=== PATIENT | female | born 1945 | race Caucasian/White ===

== ENCOUNTER 2017-04-22 19:50 | Emergency (ER) | payer MEDICARE ==
[2017-04-22] MEDS ORDERED: METOCLOPRAMIDE 5 MG/ML 2 ML VIAL IVP STA ×2 (20:42→21:24)
[2017-04-22] MEDS ORDERED: SODIUM CHLORIDE 0.9% 1,000 ML IV STA (20:42)
[2017-04-22] MEDS ORDERED: RX INFO: IV CONTRAST WAS GIVEN 1 EACH MISC MISCELLANE PRN (20:43)
--- NOTE | 2017-04-22 20:47 | ED ---
General Adult HPI - General Chief complaint: Headache Stated complaint: Migraine Time Seen by Provider: 04/22/17 20:32 Source: patient, RN notes reviewed Mode of arrival: wheelchair Limitations: no limitations - History of Present Illness Initial comments: 71-year-old female presents to the emergency she developed this headache. She states it was around the front of her forehead and wraps around both sides of her face to her neck. She states that she has a history of migraines but this was different. She took a baby aspirin medication to help with her headache is still do not get better. They state they checked her blood pressures which were somewhat elevated at home around 150s 160s. She states that she then took a Tylenol 3. She states that this time her headache has improved with 10 to about an 8. She states that she still having the frontal headache. She states it's worse to light. She states that she does have a history of migraines and states that this time it is currently starting to represent her normal migraine. They were concerned due to the continued headache and the fact that it was not improving so without that they should be evaluated. Patient denies any recent fever, chills, shortness of breath, chest pain, back pain, abdominal pain, nausea vomiting, numbness or tingling, dysuria or hematuria, constipation or diarrhea, visual changes, or any other current symptoms. - Related Data Home Medications Medication Instructions Recorded Confirmed ALPRAZolam [Xanax] 0.5 mg PO HS PRN 02/08/15 02/08/15 Atenolol [Tenormin] 50 mg PO HS 02/08/15 02/09/15 Citalopram Hydrobromide [CeleXA] 10 mg PO DAILY 02/08/15 02/08/15 Enalapril/Hydrochlorothiazide 1 tab PO DAILY 02/08/15 02/08/15 [Vaseretic 5-12.5 mg] Latanoprost Ophth [Xalatan 0.005%] 1 drops BOTH EYES HS 02/08/15 02/08/15 Verapamil HCl [Verapamil ER] 60 mg PO DAILY@1400 02/08/15 02/08/15 Verapamil HCl [Verapamil ER] 120 mg PO HS 02/08/15 02/08/15 Previous Rx's Medication Instructions Recorded Aspirin EC [Ecotrin Low Dose] 81 mg PO DAILY #30 tablet. 02/09/15 Allergies Allergy/AdvReac Type Severity Reaction Status Date / Time epinephrine Allergy Unknown Verified 04/22/17 19:58 apple AdvReac Rapid Verified 04/22/17 19:58 Heart Rate ciprofloxacin AdvReac Unknown Verified 04/22/17 19:58 monosodium glutamate AdvReac Rapid Verified 04/22/17 19:58 Heart Rate preservatives AdvReac Rapid Uncoded 04/22/17 19:58 Heart Rate Review of Systems ROS Statement: Those systems with pertinent positive or pertinent negative responses have been documented in the HPI. ROS Other: All systems not noted in ROS Statement are negative. Past Medical History Past Medical History: Hyperlipidemia, Hypertension, Osteoarthritis (OA) History of Any Multi-Drug Resistant Organisms: None Reported Past Surgical History: Adenoidectomy, Tonsillectomy Past Anesthesia/Blood Transfusion Reactions: No Reported Reaction Past Psychological History: Anxiety Smoking Status: Former smoker Past Alcohol Use History: Occasional Past Drug Use History: None Reported - Past Family History Father Family Medical History: Cancer, Congestive Heart Failure (CHF) Mother Family Medical History: Dementia Sister(s) Family Medical History: No Reported History Daughter(s) Family Medical History: No Reported History General Exam - General Exam Comments Initial Comments: General: The patient is awake and alert, in no distress, and does not appear acutely ill. Eye: Pupils are equal, round and reactive to light, extra-ocular movements are intact; there is normal conjunctiva bilaterally. No signs of icterus. Ears, nose, mouth and throat: There are moist mucous membranes and no oral lesions. Neck: The neck is supple, there is no tenderness. Cardiovascular: There is a regular rate and rhythm. No murmur, rub or gallop is appreciated. Respiratory: Lungs are clear to auscultation, respirations are non-labored, breath sounds are equal. No wheezes, stridor, rales, or rhonchi. Gastrointestinal: Soft, non-distended, non-tender abdomen without masses or organomegaly noted. There is no rebound or guarding present. No CVA tenderness. Bowel sounds are unremarkable. Back: There is no tenderness to palpation in the midline. There is no obvious deformity. No rashes noted. Musculoskeletal: Normal ROM, no tenderness, There is no pedal edema. There is no calf tenderness or swelling. Sensation intact. Pulses equal bilaterally 2+. Neurological: CN II-XII intact, There are no obvious motor or sensory deficits. Coordination appears grossly intact. Speech is normal. Skin: Skin is warm and dry and no rashes or lesions are noted. Psychiatric: Cooperative, appropriate mood & affect, normal judgment. Limitations: no limitations Course Vital Signs 04/22/17 04/22/17 19:54 22:59 Temperature 99.4 F Pulse Rate 60 51 L Respiratory 18 20 Rate Blood Pressure 149/67 152/66 O2 Sat by Pulse 99 99 Oximetry Medical Decision Making - Medical Decision Making 71-year-old female presents for migraine. Patient's lab work and imaging has been evaluated. This time we discussed most suspicion for a migraine with the patient does have a history of. She is feeling better at this time. At this time we did discuss care at home for this. We did discuss return parameters and follow-up and all questions. The patient stated that she understood and she is negative this plan. This time the patient will be discharged. - Lab Data Result diagrams: 04/22/17 21:08 04/22/17 21:08 Lab Results 04/22/17 04/22/17 04/22/17 Range/Units 21:08 21:08 21:08 WBC 9.6 (3.8-10.6) k/uL RBC 4.91 (3.80-5.40) m/uL Hgb 14.4 (11.4-16.0) gm/dL Hct 42.0 (34.0-46.0) % MCV 85.6 (80.0-100.0) fL MCH 29.4 (25.0-35.0) pg MCHC 34.4 (31.0-37.0) g/dL RDW 12.9 (11.5-15.5) % Plt Count 257 (150-450) k/uL Neutrophils % 85 % Lymphocytes % 11 % Monocytes % 2 % Eosinophils % 1 % Basophils % 0 % Neutrophils # 8.2 H (1.3-7.7) k/uL Lymphocytes # 1.1 (1.0-4.8) k/uL Monocytes # 0.2 (0-1.0) k/uL Eosinophils # 0.1 (0-0.7) k/uL Basophils # 0.0 (0-0.2) k/uL PT 10.9 (9.0-12.0) sec INR 1.1 (<1.2) APTT 23.0 (22.0-30.0) sec Sodium 139 (137-145) mmol/L Potassium 3.4 L (3.5-5.1) mmol/L Chloride 103 (98-107) mmol/L Carbon Dioxide 25 (22-30) mmol/L Anion Gap 11 mmol/L BUN 18 H (7-17) mg/dL Creatinine 1.00 (0.52-1.04) mg/dL Est GFR (MDRD) Af Amer >60 (>60 ml/min/1.73 sqM) Est GFR (MDRD) Non-Af 54 (>60 ml/min/1.73 sqM) Glucose 142 H (74-99) mg/dL Calcium 9.6 (8.4-10.2) mg/dL Total Bilirubin 0.6 (0.2-1.3) mg/dL AST 26 (14-36) U/L ALT 25 (9-52) U/L Alkaline Phosphatase 61 (38-126) U/L Total Protein 6.8 (6.3-8.2) g/dL Albumin 4.2 (3.5-5.0) g/dL Influenza Type A RNA (Not Detectd) Influenza Type B (PCR) (Not Detectd) 04/22/17 Range/Units 21:26 WBC (3.8-10.6) k/uL RBC (3.80-5.40) m/uL Hgb (11.4-16.0) gm/dL Hct (34.0-46.0) % MCV (80.0-100.0) fL MCH (25.0-35.0) pg MCHC (31.0-37.0) g/dL RDW (11.5-15.5) % Plt Count (150-450) k/uL Neutrophils % % Lymphocytes % % Monocytes % % Eosinophils % % Basophils % % Neutrophils # (1.3-7.7) k/uL Lymphocytes # (1.0-4.8) k/uL Monocytes # (0-1.0) k/uL Eosinophils # (0-0.7) k/uL Basophils # (0-0.2) k/uL PT (9.0-12.0) sec INR (<1.2) APTT (22.0-30.0) sec Sodium (137-145) mmol/L Potassium (3.5-5.1) mmol/L Chloride (98-107) mmol/L Carbon Dioxide (22-30) mmol/L Anion Gap mmol/L BUN (7-17) mg/dL Creatinine (0.52-1.04) mg/dL Est GFR (MDRD) Af Amer (>60 ml/min/1.73 sqM) Est GFR (MDRD) Non-Af (>60 ml/min/1.73 sqM) Glucose (74-99) mg/dL Calcium (8.4-10.2) mg/dL Total Bilirubin (0.2-1.3) mg/dL AST (14-36) U/L ALT (9-52) U/L Alkaline Phosphatase (38-126) U/L Total Protein (6.3-8.2) g/dL Albumin (3.5-5.0) g/dL Influenza Type A RNA Not Detected (Not Detectd) Influenza Type B (PCR) Not Detected (Not Detectd) - Radiology Data Radiology results: report reviewed, image reviewed Disposition Clinical Impression: Headache Disposition: HOME SELF-CARE Condition: Stable Instructions: Acute Headache (ED) Additional Instructions: Please use medication as discussed. Please follow up with family doctor if symptoms have not improved over the next two days. Please return to the emergency room if your symptoms increase or worsen or for any other concerns. Referrals: Emmanuel Lepe MD [Primary Care Provider] - 1-2 days Time of Disposition: 23:03
[2017-04-22 21:18] LABS: Basophils % (A) 0 %; Eosinophils # (A) 0.1 k/uL (0-0.7); Eosinophils % (A) 1 %; HGB 14.4 gm/dL (11.4-16.0); Lymphocytes # (A) 1.1 k/uL (1.0-4.8); Lymphocytes % (A) 11 %; MCH 29.4 pg (25.0-35.0); MCHC 34.4 g/dL (31.0-37.0); MCV 85.6 fL (80.0-100.0); Mean Platelet Volume 7.1; Monocytes # (A) 0.2 k/uL (0-1.0); Monocytes % (A) 2 %; Neutrophils # (A) 8.2 k/uL (1.3-7.7); Neutrophils % (A) 85 %; Platelet Count 257 k/uL (150-450); RBC 4.91 m/uL (3.80-5.40); RDW 12.9 % (11.5-15.5); WBC 9.6 k/uL (3.8-10.6)
[2017-04-22 21:30] LABS: ALT 25 U/L (9-52); AST 26 U/L (14-36); Albumin 4.2 g/dL (3.5-5.0); Alkaline Phosphatase 61 U/L (38-126); Anion Gap 11 mmol/L; Blood Urea Nitrogen 18 mg/dL (7-17); Calcium 9.6 mg/dL (8.4-10.2); Carbon Dioxide 25 mmol/L (22-30); Chloride 103 mmol/L (98-107); Glucose 142 mg/dL (74-99); Sodium 139 mmol/L (137-145); Total Bilirubin 0.6 mg/dL (0.2-1.3); Total Protein 6.8 g/dL (6.3-8.2)
[2017-04-22 21:38] LABS: INR 1.1 (<1.2); Prothrombin Time 10.9 sec (9.0-12.0)
[2017-04-22 21:49] LABS: Potassium 3.4 mmol/L (3.5-5.1)
--- NOTE | 2017-04-22 22:58 | CT ---
EXAM: CT Head Without and With Intravenous Contrast CLINICAL HISTORY: Reason: Pain TECHNIQUE: Axial computed tomography images of the head/brain without and with intravenous contrast. CTDI is 60.38, 60.30 mGy and DLP is 2124 mGy-cm. This CT exam was performed using one or more of the following dose reduction techniques: automated exposure control, adjustment of the mA and/or kV according to patient size, and/or use of iterative reconstruction technique. COMPARISON: No relevant prior studies available. FINDINGS: Brain: Unremarkable. No hemorrhage. No significant white matter disease. No edema. Normal enhancement. Ventricles: Unremarkable. No ventriculomegaly. Bones/joints: Unremarkable. No acute fracture. Soft tissues: Unremarkable. Sinuses: Unremarkable as visualized. No acute sinusitis. Mastoid air cells: Unremarkable. IMPRESSION: No acute intracranial abnormality.
[2017-04-22 23:00] VITALS: BP 152/66; PULSE 51; RESP 20
[2017-04-22] MEDS ORDERED: diphenhydrAMINE 25 MG CAP PO STA (23:02)
[2017-04-22 23:04] VITALS: TEMP 98.5
== END 2017-04-22 23:26 | disposition home or self-care (01) ==
LOC: EC 19:50
DX: R51 Headache (principal); I10 Essential (primary) hypertension; Z87.891 Personal history of nicotine dependence; Z79.899 Other long term (current) drug therapy; Z88.1 Allergy status to other antibiotic agents; Z88.8 Allergy status to other drugs, medicaments and biological substances; Z91.018 Allergy to other foods; Z91.02 Food additives allergy status
CPT/HCPCS: 36415; 80053; 85025; 85610; 85730; 87502; 70470; 99284; 96374; 96361 ×2; J2765; Q9967

== ENCOUNTER 2020-02-06 15:19 | Emergency (ER) | payer MEDICARE ==
[2020-02-06 15:31] VITALS: RESP 18
--- NOTE | 2020-02-06 15:43 | ED ---
General Adult HPI - General Chief complaint: Headache Stated complaint: Head Pain,Lightheaded Time Seen by Provider: 02/06/20 15:36 Source: patient, EMS, RN notes reviewed, old records reviewed Mode of arrival: EMS Limitations: no limitations - History of Present Illness Initial comments: 74 yo female presenting for evaluation of headache and lightheadedness. Patient was at home, she had a right parietal occipital headache which began approximately one hour prior to arrival. She states that she had a cold feeling travel through her body and she became lightheaded. She felt very weak. She denies focal numbness or weakness. She states that she has a headache although it is much improved at this time and it is predominantly left-sided and oc cipital. She denies vision changes. She denies nausea vomiting. She states she was in her usual state of health prior to this headache. No chest pain. No dyspnea. She states that she typically gets 2 headaches per week. She has had a similar headache 2 times over the past several months. - Related Data Home Medications Medication Instructions Recorded Confirmed ALPRAZolam [Xanax] 0.5 mg PO BID 02/08/15 02/06/20 Citalopram Hydrobromide [CeleXA] 20 mg PO HS 02/08/15 02/06/20 Latanoprost Ophth [Xalatan 0.005%] 1 drop BOTH EYES HS 02/08/15 02/06/20 Enalapril/Hydrochlorothiazide 1 tab PO DAILY 02/06/20 02/06/20 [Enalapril/Hydrochlorothiazide 10-25 mg Tablet] Metoprolol Tartrate 25 mg PO DAILY 02/06/20 02/06/20 amLODIPine [Norvasc] 5 mg PO HS 02/06/20 02/06/20 Allergies Allergy/AdvReac Type Severity Reaction Status Date / Time epinephrine Allergy Unknown Verified 02/06/20 16:30 apple AdvReac Rapid Verified 02/06/20 16:30 Heart Rate ciprofloxacin AdvReac Unknown Verified 02/06/20 16:30 monosodium glutamate AdvReac Rapid Verified 02/06/20 16:30 Heart Rate preservatives AdvReac Rapid Uncoded 02/06/20 16:30 Heart Rate Review of Systems ROS Statement: Those systems with pertinent positive or pertinent negative responses have been documented in the HPI. ROS Other: All systems not noted in ROS Statement are negative. Past Medical History Past Medical History: Hyperlipidemia, Hypertension, Osteoarthritis (OA) History of Any Multi-Drug Resistant Organisms: None Reported Past Surgical History: Adenoidectomy, Tonsillectomy Past Anesthesia/Blood Transfusion Reactions: No Reported Reaction Past Psychological History: Anxiety Smoking Status: Former smoker Past Alcohol Use History: Occasional Past Drug Use History: None Reported - Past Family History Father Family Medical History: Cancer, Congestive Heart Failure (CHF) Mother Family Medical History: Dementia Sister(s) Family Medical History: No Reported History Daughter(s) Family Medical History: No Reported History General Exam Limitations: no limitations General appearance: alert, in no apparent distress Head exam: Present: atraumatic, normocephalic Eye exam: Present: normal appearance, PERRL ENT exam: Present: normal exam Neck exam: Present: normal inspection. Absent: tenderness, meningismus Respiratory exam: Present: normal lung sounds bilaterally. Absent: respiratory distress, wheezes Cardiovascular Exam: Present: regular rate, normal rhythm GI/Abdominal exam: Present: soft. Absent: distended, tenderness Extremities exam: Present: normal inspection, normal capillary refill. Absent: pedal edema, calf tenderness Neurological exam: Present: alert, oriented X3, CN II-XII intact. Absent: motor sensory deficit Psychiatric exam: Present: normal affect, normal mood Skin exam: Present: warm, dry, intact. Absent: cyanosis, diaphoretic Course Vital Signs 02/06/20 02/06/20 15:28 16:12 Temperature 97.8 F Pulse Rate 63 60 Respiratory 18 18 Rate Blood Pressure 163/75 155/58 O2 Sat by Pulse 99 100 Oximetry EKG Findings - EKG Comments: EKG Findings:: EKG: Normal sinus rhythm, T-wave inversion in aVL and V2, no ST segment elevation, rate of 61, AK interval 152, QRS duration 104, QTC 457. Medical Decision Making - Medical Decision Making 68 sexual female presenting with a headache, headache history at baseline however this was somewhat different. It has occurred twice over the past several months similar to today's headache. She is well-appearing with stable vitals. Workup is initiated including head CT which is performed within 2 hours of symptom onset. This is negative for intracranial hemorrhage. Patient does not have a severe headache this is not the worst headache of her life. Additionally she had a not feeling and some lightheadedness. No chest pain. No abdominal pain. She has this EKG showing sinus rhythm, she has a normal CBC, normal CMP, negative troponin. I did offer observation with neurology cons ultation given her headache frequency. She prefers outpatient treatment at this time. Her daughter is at bedside was agreeable. Given her headache frequency and the fact she has had this headache twice in the past several months I am reassured and will provide this patient with outpatient neurology follow-up. She's given strict return parameters. - Lab Data Result diagrams: 02/06/20 15:41 02/06/20 15:41 Lab Results 02/06/20 02/06/20 02/06/20 Range/Units 15:41 15:41 15:41 WBC 7.4 (3.8-10.6) k/uL RBC 4.52 (3.80-5.40) m/uL Hgb 13.1 (11.4-16.0) gm/dL Hct 39.2 (34.0-46.0) % MCV 86.7 (80.0-100.0) fL MCH 29.0 (25.0-35.0) pg MCHC 33.4 (31.0-37.0) g/dL RDW 13.2 (11.5-15.5) % Plt Count 219 (150-450) k/uL MPV 8.2 Neutrophils % 79 % Lymphocytes % 14 % Monocytes % 4 % Eosinophils % 2 % Basophils % 1 % Neutrophils # 5.9 (1.3-7.7) k/uL Lymphocytes # 1.0 (1.0-4.8) k/uL Monocytes # 0.3 (0-1.0) k/uL Eosinophils # 0.2 (0-0.7) k/uL Basophils # 0.0 (0-0.2) k/uL PT 10.6 (9.0-12.0) sec INR 1.0 (<1.2) APTT 21.5 L (22.0-30.0) sec Sodium (137-145) mmol/L Potassium (3.5-5.1) mmol/L Chloride (98-107) mmol/L Carbon Dioxide (22-30) mmol/L Anion Gap mmol/L BUN (7-17) mg/dL Creatinine (0.52-1.04) mg/dL Est GFR (CKD-EPI)AfAm (>60 ml/min/1.73 sqM) Est GFR (CKD-EPI)NonAf (>60 ml/min/1.73 sqM) Glucose (74-99) mg/dL Plasma Lactic Acid Renny (0.7-2.0) mmol/L Calcium (8.4-10.2) mg/dL Magnesium (1.6-2.3) mg/dL Total Bilirubin (0.2-1.3) mg/dL AST (14-36) U/L ALT (4-34) U/L Alkaline Phosphatase (38-126) U/L Troponin I (0.000-0.034) ng/mL Total Protein (6.3-8.2) g/dL Albumin (3.5-5.0) g/dL Urine Color Yellow Urine Appearance Clear (Clear) Urine pH 5.5 (5.0-8.0) Ur Specific [place] 1.011 (1.001-1.035) Urine Protein Negative (Negative) Urine Glucose (UA) Negative (Negative) Urine Ketones Trace H (Negative) Urine Blood Moderate H (Negative) Urine Nitrite Negative (Negative) Urine Bilirubin Negative (Negative) Urine Urobilinogen <2.0 (<2.0) mg/dL Ur Leukocyte Esterase Negative (Negative) Urine RBC 10 H (0-5) /hpf Urine WBC 1 (0-5) /hpf Ur Squamous Epith Cells <1 (0-4) /hpf 02/06/20 02/06/20 02/06/20 Range/Units 15:41 15:41 15:41 WBC (3.8-10.6) k/uL RBC (3.80-5.40) m/uL Hgb (11.4-16.0) gm/dL Hct (34.0-46.0) % MCV (80.0-100.0) fL MCH (25.0-35.0) pg MCHC (31.0-37.0) g/dL RDW (11.5-15.5) % Plt Count (150-450) k/uL MPV Neutrophils % % Lymphocytes % % Monocytes % % Eosinophils % % Basophils % % Neutrophils # (1.3-7.7) k/uL Lymphocytes # (1.0-4.8) k/uL Monocytes # (0-1.0) k/uL Eosinophils # (0-0.7) k/uL Basophils # (0-0.2) k/uL PT (9.0-12.0) sec INR (<1.2) APTT (22.0-30.0) sec Sodium 137 (137-145) mmol/L Potassium 3.5 (3.5-5.1) mmol/L Chloride 108 H (98-107) mmol/L Carbon Dioxide 22 (22-30) mmol/L Anion Gap 7 mmol/L BUN 28 H (7-17) mg/dL Creatinine 1.16 H (0.52-1.04) mg/dL Est GFR (CKD-EPI)AfAm 53 (>60 ml/min/1.73 sqM) Est GFR (CKD-EPI)NonAf 46 (>60 ml/min/1.73 sqM) Glucose 102 H (74-99) mg/dL Plasma Lactic Acid Renny 1.5 (0.7-2.0) mmol/L Calcium 9.4 (8.4-10.2) mg/dL Magnesium 1.7 (1.6-2.3) mg/dL Total Bilirubin 0.7 (0.2-1.3) mg/dL AST 26 (14-36) U/L ALT 14 (4-34) U/L Alkaline Phosphatase 54 (38-126) U/L Troponin I <0.012 (0.000-0.034) ng/mL Total Protein 6.8 (6.3-8.2) g/dL Albumin 4.1 (3.5-5.0) g/dL Urine Color Urine Appearance (Clear) Urine pH (5.0-8.0) Ur Specific [place] (1.001-1.035) Urine Protein (Negative) Urine Glucose (UA) (Negative) Urine Ketones (Negative) Urine Blood (Negative) Urine Nitrite (Negative) Urine Bilirubin (Negative) Urine Urobilinogen (<2.0) mg/dL Ur Leukocyte Esterase (Negative) Urine RBC (0-5) /hpf Urine WBC (0-5) /hpf Ur Squamous Epith Cells (0-4) /hpf Disposition Clinical Impression: Headache Disposition: HOME SELF-CARE Condition: Good Instructions (If sedation given, give patient instructions): Acute Headache (ED) Is patient prescribed a controlled substance at d/c from ED?: No Referrals: Emmanuel Lepe MD [Primary Care Provider] - 1-2 days Chet Miller DO [STAFF PHYSICIAN] - 1-2 days Time of Disposition: 17:16
[2020-02-06 15:56] LABS: Basophils % (A) 1 %; Eosinophils # (A) 0.2 k/uL (0-0.7); Eosinophils % (A) 2 %; HCT 39.2 % (34.0-46.0); HGB 13.1 gm/dL (11.4-16.0); Lymphocytes % (A) 14 %; MCHC 33.4 g/dL (31.0-37.0); MCV 86.7 fL (80.0-100.0); Mean Platelet Volume 8.2; Monocytes # (A) 0.3 k/uL (0-1.0); Monocytes % (A) 4 %; Neutrophils # (A) 5.9 k/uL (1.3-7.7); Neutrophils % (A) 79 %; Platelet Count 219 k/uL (150-450); RBC 4.52 m/uL (3.80-5.40); RDW 13.2 % (11.5-15.5); WBC 7.4 k/uL (3.8-10.6)
[2020-02-06 16:05] LABS: Albumin 4.1 g/dL (3.5-5.0); Calcium 9.4 mg/dL (8.4-10.2); Magnesium 1.7 mg/dL (1.6-2.3); Potassium 3.5 mmol/L (3.5-5.1); Total Bilirubin 0.7 mg/dL (0.2-1.3); Total Protein 6.8 g/dL (6.3-8.2)
[2020-02-06 16:14] LABS: Partial Thromboplastin Time 21.5 sec (22.0-30.0); Prothrombin Time 10.6 sec (9.0-12.0)
--- NOTE | 2020-02-06 16:16 | CT ---
EXAMINATION TYPE: CT brain wo con DATE OF EXAM: 02/06/2020 HISTORY: New onset WALLS CT DLP: 1141.4 mGycm. Automated Exposure Control for Dose Reduction was Utilized. TECHNIQUE: CT scan of the head is performed without contrast. COMPARISON: CT brain April 22, 2017. FINDINGS: There is no acute intracranial hemorrhage or midline shift identified. There is diffuse v entricular and sulcal prominence consistent with diffuse cerebral atrophy. Findings greatest over the high frontal and parietal lobes similar to prior. There is low-attenuation in the periventricular wh ite matter consistent with chronic small vessel ischemic change. The globes are intact and the visua lized sinuses are clear. IMPRESSION: No acute intracranial hemorrhage or midline shift. There is mild to moderate diffuse ce rebral atrophy and chronic small vessel ischemic change redemonstrated. No significant change from p rior.
[2020-02-06 16:34] LABS: Appearance,Urine Clear (Clear); Bilirubin,Urine Negative (Negative); Blood,Urine Moderate (Negative); Color,Urine Yellow; Glucose,Urine (UA) Negative (Negative); Ketones,Urine Trace (Negative); Leukocyte Esterase,Urine Negative (Negative); Nitrite,Urine Negative (Negative); PH, Urine 5.5 (5.0-8.0); Protein,Urine Negative (Negative); RBC,Urine 10 /hpf (0-5); Specific Gravity,Urine 1.011 (1.001-1.035); Squamous Epithelial Cell,Urine <1 /hpf (0-4); Urobilinogen,Urine <2.0 mg/dL (<2.0); WBC,Urine 1 /hpf (0-5)
[2020-02-06 17:24] VITALS: BP 144/62; PULSE 65; TEMP 97.7
== END 2020-02-06 17:21 | disposition home or self-care (01) ==
LOC: EC 15:19
DX: R51.9 Headache, unspecified (principal); R42 Dizziness and giddiness; I10 Essential (primary) hypertension; F41.9 Anxiety disorder, unspecified; Z79.899 Other long term (current) drug therapy; Z88.8 Allergy status to other drugs, medicaments and biological substances; Z91.018 Allergy to other foods; Z88.1 Allergy status to other antibiotic agents; Z91.02 Food additives allergy status; Z87.891 Personal history of nicotine dependence
CPT/HCPCS: 36415; 70450; 80053; 81001; 83605; 83735; 84484; 85025; 85610; 85730; 93005; 99285

== ENCOUNTER 2020-07-20 17:52 | Observation (INO) | payer MEDICARE ==
[2020-07-20] MEDS ORDERED: SODIUM CHLORIDE 0.9% 500 ML 500 ML IV STA (18:50)
[2020-07-20] MEDS ORDERED: MORPHINE SULFATE 2 MG/ML SYRINGE IVP STA (18:51)
[2020-07-20] MEDS ORDERED: METOCLOPRAMIDE 5 MG/ML 2 ML VIAL IVP STA (18:51)
[2020-07-20] MEDS ORDERED: diphenhydrAMINE 50 MG/ML 1 ML VIAL IVP STA (18:51)
[2020-07-20 19:02] LABS: Basophils % (A) 1 %; Eosinophils # (A) 0.2 k/uL (0-0.7); Eosinophils % (A) 3 %; HCT 39.6 % (34.0-46.0); HGB 13.8 gm/dL (11.4-16.0); Lymphocytes # (A) 1.3 k/uL (1.0-4.8); Lymphocytes % (A) 20 %; MCH 29.6 pg (25.0-35.0); MCHC 34.9 g/dL (31.0-37.0); MCV 84.9 fL (80.0-100.0); Mean Platelet Volume 7.9; Monocytes # (A) 0.3 k/uL (0-1.0); Monocytes % (A) 5 %; Neutrophils # (A) 4.6 k/uL (1.3-7.7); Neutrophils % (A) 71 %; Platelet Count 196 k/uL (150-450); RBC 4.66 m/uL (3.80-5.40); RDW 12.9 % (11.5-15.5); WBC 6.4 k/uL (3.8-10.6)
[2020-07-20 19:13] LABS: Albumin 4.2 g/dL (3.5-5.0); Calcium 9.5 mg/dL (8.4-10.2); Magnesium 1.8 mg/dL (1.6-2.3); Potassium 3.4 mmol/L (3.5-5.1); Total Bilirubin 0.7 mg/dL (0.2-1.3); Total Protein 6.8 g/dL (6.3-8.2)
[2020-07-20 19:16] LABS: Partial Thromboplastin Time 22.4 sec (22.0-30.0); Prothrombin Time 10.6 sec (9.0-12.0)
--- NOTE | 2020-07-20 19:41 | XR ---
EXAMINATION TYPE: XR chest 2V DATE OF EXAM: 07/20/2020 COMPARISON: NONE HISTORY: Chest pain TECHNIQUE: 2 views FINDINGS: There is no heart failure nor confluent pneumonic infiltrate. Costophrenic angles are clear . There are no hilar masses. IMPRESSION: No active cardiopulmonary disease. No change.
[2020-07-20] MEDS ORDERED: NALOXONE 0.4 MG/ML 1 ML VIAL IV PRN (20:38)
[2020-07-20] MEDS ORDERED: MORPHINE SULFATE 4 MG/ML SYRINGE IV PRN (20:38)
[2020-07-20] MEDS ORDERED: ONDANSETRON 4 MG/2 ML VIAL IVP PRN (20:38)
--- NOTE | 2020-07-20 20:40 | ED ---
General Adult HPI - General Chief complaint: Chest Pain Stated complaint: Chest pain Time Seen by Provider: 07/20/20 17:57 Source: patient, EMS Mode of arrival: EMS Limitations: no limitations - History of Present Illness Initial comments: 44-year-old female patient presents to the emergency department today for evaluation of chest pain and migraine headache. Patient states that she has had the substernal chest pressure for the last couple of days worsening today. Reports a little bit of shortness of breath with this. Denies any cough or congestion. Denies any sweats. States she has had some nausea. States she also developed migraine this morning. States she does have a history of migraines, this headache is typical for her usual migraine pattern. Denies any blurred or double vision. Patient denies any recent rash, fever, chills, abdo fadi pain, nausea, vomiting, diarrhea, constipation, back pain, numbness, tingling, dizziness, weakness, hematuria, dysuria, urinary urgency, urinary frequency, or any other complaints. - Related Data Home Medications Medication Instructions Recorded Confirmed ALPRAZolam [Xanax] 0.5 mg PO BID 02/08/15 02/06/20 Citalopram Hydrobromide [CeleXA] 20 mg PO HS 02/08/15 02/06/20 Latanoprost Ophth [Xalatan 0.005%] 1 drop BOTH EYES HS 02/08/15 02/06/20 Enalapril/Hydrochlorothiazide 1 tab PO DAILY 02/06/20 02/06/20 [Enalapril/Hydrochlorothiazide 10-25 mg Tablet] Metoprolol Tartrate 25 mg PO DAILY 02/06/20 02/06/20 amLODIPine [Norvasc] 5 mg PO HS 02/06/20 02/06/20 Allergies Allergy/AdvReac Type Severity Reaction Status Date / Time epinephrine Allergy Unknown Verified 07/20/20 18:02 apple AdvReac Rapid Verified 07/20/20 18:02 Heart Rate ciprofloxacin AdvReac Unknown Verified 07/20/20 18:02 monosodium glutamate AdvReac Rapid Verified 07/20/20 18:02 Heart Rate preservatives AdvReac Rapid Uncoded 07/20/20 18:02 Heart Rate Review of Systems ROS Statement: Those systems with pertinent positive or pertinent negative responses have been documented in the HPI. ROS Other: All systems not noted in ROS Statement are negative. Past Medical History Past Medical History: Hyperlipidemia, Hypertension, Osteoarthritis (OA) History of Any Multi-Drug Resistant Organisms: None Reported Past Surgical History: Adenoidectomy, Tonsillectomy Past Anesthesia/Blood Transfusion Reactions: No Reported Reaction Past Psychological History: Anxiety Smoking Status: Former smoker Past Alcohol Use History: Occasional Past Drug Use History: None Reported - Past Family History Father Family Medical History: Cancer, Congestive Heart Failure (CHF) Mother Family Medical History: Dementia Sister(s) Family Medical History: No Reported History Daughter(s) Family Medical History: No Reported History General Exam Limitations: no limitations General appearance: alert, in no apparent distress, other (Physical well- developed, well-nourished adult female patient in no acute distress. Vital signs upon presentation are temperature 98.0F, pulse 62, respirations 18, blood pressure 152/73, pulse ox 99% on room air.) Eye exam: Present: normal appearance, PERRL, EOMI. Absent: scleral icterus, conjunctival injection, periorbital swelling ENT exam: Present: normal exam, normal oropharynx, mucous membranes moist Respiratory exam: Present: normal lung sounds bilaterally. Absent: respiratory distress, wheezes, rales, rhonchi, stridor Cardiovascular Exam: Present: regular rate, normal rhythm, normal heart sounds. Absent: systolic murmur, diastolic murmur, rubs, gallop, clicks GI/Abdominal exam: Present: soft, normal bowel sounds. Absent: distended, tenderness, guarding, rebound, rigid Neurological exam: Present: alert, oriented X3, CN II-XII intact Expanded Speech: Present: fluid speech Cranial nerves: EOM's Intact: Normal, Nystagmus: Normal Motor strength exam: RUE: 5, LUE: 5, RLE: 5, LLE: 5 Psychiatric exam: Present: normal affect, normal mood Skin exam: Present: warm, dry, intact, normal color. Absent: rash Course Vital Signs 07/20/20 07/20/20 17:57 19:04 Temperature 98 F Pulse Rate 62 72 Respiratory 18 16 Rate Blood Pressure 152/73 140/65 O2 Sat by Pulse 99 99 Oximetry EKG Findings - EKG Comments: EKG Findings:: EKG obtained at 1822 shows sinus bradycardia with a ventricular 59, AR interval 162, QRS duration 104, QTC 474, QTC 469. No evidence of ST elevation or depression. Medical Decision Making - Medical Decision Making 74-year-old female patient presented to the emergency department today for evaluation of migraine headache and chest pain. Physical examination is unremarkable. She is neurologically intact with no focal deficits. Lungs are clear to auscultation with good air movement. EKG showed no evidence of ST elevation or depression. She'll be admitted to the hospital for surgical bones and further evaluation by cardiology. She is agreeable with this plan. Case discussed with my attending Dr. Greene. - Lab Data Result diagrams: 07/20/20 18:55 07/20/20 18:55 Lab Results 07/20/20 07/20/20 07/20/20 Range/Units 18:55 18:55 18:55 WBC 6.4 (3.8-10.6) k/uL RBC 4.66 (3.80-5.40) m/uL Hgb 13.8 (11.4-16.0) gm/dL Hct 39.6 (34.0-46.0) % MCV 84.9 (80.0-100.0) fL MCH 29.6 (25.0-35.0) pg MCHC 34.9 (31.0-37.0) g/dL RDW 12.9 (11.5-15.5) % Plt Count 196 (150-450) k/uL MPV 7.9 Neutrophils % 71 % Lymphocytes % 20 % Monocytes % 5 % Eosinophils % 3 % Basophils % 1 % Neutrophils # 4.6 (1.3-7.7) k/uL Lymphocytes # 1.3 (1.0-4.8) k/uL Monocytes # 0.3 (0-1.0) k/uL Eosinophils # 0.2 (0-0.7) k/uL Basophils # 0.0 (0-0.2) k/uL PT 10.6 (9.0-12.0) sec INR 1.0 (<1.2) APTT 22.4 (22.0-30.0) sec Sodium 138 (137-145) mmol/L Potassium 3.4 L (3.5-5.1) mmol/L Chloride 104 (98-107) mmol/L Carbon Dioxide 23 (22-30) mmol/L Anion Gap 11 mmol/L BUN 26 H (7-17) mg/dL Creatinine 1.10 H (0.52-1.04) mg/dL Est GFR (CKD-EPI)AfAm 56 (>60 ml/min/1.73 sqM) Est GFR (CKD-EPI)NonAf 49 (>60 ml/min/1.73 sqM) Glucose 98 (74-99) mg/dL Calcium 9.5 (8.4-10.2) mg/dL Magnesium 1.8 (1.6-2.3) mg/dL Total Bilirubin 0.7 (0.2-1.3) mg/dL AST 23 (14-36) U/L ALT 14 (4-34) U/L Alkaline Phosphatase 52 (38-126) U/L Troponin I (0.000-0.034) ng/mL Total Protein 6.8 (6.3-8.2) g/dL Albumin 4.2 (3.5-5.0) g/dL Lipase 173 (23-300) U/L Influenza Type A (PCR) (Not Detectd) Influenza Type B (PCR) (Not Detectd) RSV (PCR) (Not Detectd) SARS-CoV-2 (PCR) (Not Detectd) 07/20/20 07/20/20 Range/Units 18:55 20:08 WBC (3.8-10.6) k/uL RBC (3.80-5.40) m/uL Hgb (11.4-16.0) gm/dL Hct (34.0-46.0) % MCV (80.0-100.0) fL MCH (25.0-35.0) pg MCHC (31.0-37.0) g/dL RDW (11.5-15.5) % Plt Count (150-450) k/uL MPV Neutrophils % % Lymphocytes % % Monocytes % % Eosinophils % % Basophils % % Neutrophils # (1.3-7.7) k/uL Lymphocytes # (1.0-4.8) k/uL Monocytes # (0-1.0) k/uL Eosinophils # (0-0.7) k/uL Basophils # (0-0.2) k/uL PT (9.0-12.0) sec INR (<1.2) APTT (22.0-30.0) sec Sodium (137-145) mmol/L Potassium (3.5-5.1) mmol/L Chloride (98-107) mmol/L Carbon Dioxide (22-30) mmol/L Anion Gap mmol/L BUN (7-17) mg/dL Creatinine (0.52-1.04) mg/dL Est GFR (CKD-EPI)AfAm (>60 ml/min/1.73 sqM) Est GFR (CKD-EPI)NonAf (>60 ml/min/1.73 sqM) Glucose (74-99) mg/dL Calcium (8.4-10.2) mg/dL Magnesium (1.6-2.3) mg/dL Total Bilirubin (0.2-1.3) mg/dL AST (14-36) U/L ALT (4-34) U/L Alkaline Phosphatase (38-126) U/L Troponin I <0.012 (0.000-0.034) ng/mL Total Protein (6.3-8.2) g/dL Albumin (3.5-5.0) g/dL Lipase (23-300) U/L Influenza Type A (PCR) Not Detected (Not Detectd) Influenza Type B (PCR) Not Detected (Not Detectd) RSV (PCR) Not Detected (Not Detectd) SARS-CoV-2 (PCR) Not Detected (Not Detectd) - Radiology Data Radiology results: report reviewed, image reviewed Two-view x-ray of the chest is obtained. Report was reviewed in its entirety. Impression by Dr. Joe shows no active cardiopulmonary disease. No change. Disposition Clinical Impression: Chest pain Disposition: ADMITTED IP TO THIS [facility] Condition: Serious Decision to Admit Reason: Admit from EC Decision Date: 07/20/20 Decision Time: 20:40
[2020-07-20] MEDS ORDERED: POTASSIUM CHLORIDE ER 20 MEQ TAB.ER PO STA (21:15)
[2020-07-20] MEDS ORDERED: BACLOFEN 10 MG TAB PO PRN (21:28)
[2020-07-20] MEDS ORDERED: Acetaminophen-Codeine 300-30mg TAB PO PRN (21:28)
[2020-07-21] MEDS: MULTIVITAMINS, THERA 1 EACH TAB PO SCH (07:35)
[2020-07-21] MEDS: ALPRAZolam 0.5 MG TAB PO SCH ×2 (07:40→20:30)
[2020-07-21] MEDS: LISINOPRIL-HCTZ 20-25 MG 1 EACH TAB PO SCH (08:32)
[2020-07-21] MEDS ORDERED: REGADENOSON 0.4 MG/5 ML SYRINGE IV PRN (08:36)
[2020-07-21] MEDS ORDERED: AMINOPHYLLINE 500 MG/20 ML VIAL IV PRN (08:36)
[2020-07-21] MEDS ORDERED: CAFFEINE CITRATE 60 MG/3 ML VIAL IV PRN (08:36)
[2020-07-21] MEDS ORDERED: ASPIRIN 325 MG TAB PO SCH (09:00)
[2020-07-21] MEDS ORDERED: NON FORMULARY DRUG (Turmeric Root Extract [Turmeric] 500 MG Capsule) PO SCH (09:00)
--- NOTE | 2020-07-21 10:01 | P.CRDCN ---
History of Present Illness History of present illness: HISTORY OF PRESENTING ILLNESS This is a pleasant 74-year-old female past medical history significant for hypertension, frequent migraine headaches and arthritis. 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 We have been asked to see in consultation for chest pain. She states for the previous 3 days she has been having intermittent episodes of chest discomfort described as a tight squeezing sensation in the midsternal region. Not associated with activity or exertion. Yesterday she began having a pretty significant headache after finishing physical therapy. She had another episode of chest discomfort shortly thereafter that radiated to the left jaw. She denies associated shortness of breath, dizziness, palpitations, nausea, vomiting or diaphoresis. Most recent stress test performed 2014 was a Lexiscan stress test that was negative for reversible cardiac ischemia. DIAGNOSTICS EKG reveals sinus bradycardia with T-wave inversions in the anterior leads, consistent with previous EKGs. Chest xray negative for an acute cardiopulmonary process. Laboratory reviewed, EDC unremarkable, sodium 138, potassium 3.4, creatinine 1.1, magnesium 1.8 and cardiac enzymes negative 3. Current cardiac medications include Lopressor 25 mg at bedtime, amlodipine 5 mg daily and enalapril/hydrochlorothiazide 10/25 mg daily. REVIEW OF SYSTEMS At the time of my exam: CONSTITUTIONAL: Complains of ongoing headache. Denies fever or chills. CARDIOVASCULAR: Denies chest pain, shortness of breath, orthopnea, PND or palp itations. RESPIRATORY: Denies cough. GASTROINTESTINAL: Denies abdominal pain, diarrhea, constipation, nausea or vomiting. MUSCULOSKELETAL: Denies myalgias. NEUROLOGIC: Denies numbness, tingling, headacbe or weakness. ENDOCRINE: Denies fatigue, weight change, polydipsia or polyurina. GENITOURINARY: Denies burning, hematuria or urgency with micturation. HEMATOLOGIC: Denies history of anemia or bleeding. PHYSICAL EXAMINATION Blood pressure 129/57 heart rate 57 afebrile and maintaining oxygen saturation on room air. CONSTITUTIONAL: No apparent distress. HEENT: Head is normocephalic. Pupils are equal, round. Sclerae anicteric. Mucous membranes of the mouth are moist. No JVD. Right carotid bruit. CHEST EXAMINATION: Lungs are clear to auscultation. No chest wall tenderness is noted on palpation or with deep breathing. HEART EXAMINATION: Regular rate and rhythm. S1, S2 heard. No murmurs, gallops or rub. ABDOMEN: Soft, nontender. Positive bowel sounds. EXTREMITIES: 2+ peripheral pulses, no lower extremity edema and no calf tenderness. NEUROLOGIC EXAMINATION: Patient is awake, alert and oriented x3. ASSESSMENT Chest pain, atypical Abnormal EKG, chronic since 2014 Headache Hypertension History of arthritis PLAN An acute coronary event has been ruled out. Proceed with Lexiscan stress test to assess for reversible cardiac ischemia. Check lipid panel. If stress test is normal she can be discharged from a cardiac perspective. Outpatient follow up on right carotid bruit. Thank you kindly for this consultation. Nurse Practitioner note has been reviewed, I agree with a documented findings and plan of care. Patient was seen and examined. Past Medical History Past Medical History: Hyperlipidemia, Hypertension, Osteoarthritis (OA) History of Any Multi-Drug Resistant Organisms: None Reported Past Surgical History: Adenoidectomy, Tonsillectomy Past Anesthesia/Blood Transfusion Reactions: No Reported Reaction Past Psychological History: Anxiety Smoking Status: Former smoker Past Alcohol Use History: Occasional Past Drug Use History: None Reported - Past Family History Father Family Medical History: Cancer, Congestive Heart Failure (CHF) Mother Family Medical History: Dementia Sister(s) Family Medical History: No Reported History Daughter(s) Family Medical History: No Reported History Medications and Allergies Home Medications Medication Instructions Recorded Confirmed Type ALPRAZolam [Xanax] 0.5 mg PO BID 02/08/15 07/20/20 History Citalopram Hydrobromide [CeleXA] 20 mg PO HS 02/08/15 07/20/20 History Latanoprost Ophth [Xalatan 0.005%] 1 drop BOTH EYES HS 02/08/15 07/20/20 History Enalapril/Hydrochlorothiazide 1 tab PO DAILY 02/06/20 07/20/20 History [Enalapril/Hydrochlorothiazide 10-25 mg Tablet] Metoprolol Tartrate 25 mg PO HS 02/06/20 07/20/20 History amLODIPine [Norvasc] 5 mg PO HS 02/06/20 07/20/20 History Acetaminophen-Codeine 300-30mg 1 tab PO DAILY PRN 07/20/20 07/20/20 History [Tylenol w/codeine #3] Baclofen 10 mg PO BID PRN 07/20/20 07/20/20 History Multivitamins, Thera [Multivitamin 1 tab PO DAILY 07/20/20 07/20/20 History (formulary)] Turmeric Root Extract [Turmeric] 500 mg PO DAILY 07/20/20 07/20/20 History Allergies Allergy/AdvReac Type Severity Reaction Status Date / Time epinephrine Allergy Unknown Verified 07/20/20 21:22 apple AdvReac Rapid Verified 07/20/20 21:22 Heart Rate ciprofloxacin AdvReac Unknown Verified 07/20/20 21:22 monosodium glutamate AdvReac Rapid Verified 07/20/20 21:22 Heart Rate preservatives AdvReac Rapid Uncoded 07/20/20 21:22 Heart Rate Physical Exam Vitals: Vital Signs Temp Pulse Pulse Resp BP BP Pulse Ox 07/21/20 07:32 98.0 F 57 L 18 129/57 96 07/21/20 05:44 52 L 16 125/62 96 07/20/20 23:00 64 16 125/57 99 07/20/20 22:00 63 18 122/53 99 07/20/20 20:00 62 16 129/57 99 07/20/20 19:04 72 16 140/65 99 07/20/20 17:57 98 F 62 18 152/73 99 Intake and Output 07/20/20 07/21/20 07/21/20 22:59 06:59 14:59 Other: Weight 76.204 kg Results 07/20/20 18:55 07/20/20 18:55 Cardiac Enzymes 07/20/20 07/20/20 07/20/20 Range/Units 18:55 18:55 22:19 AST 23 (14-36) U/L Troponin I <0.012 <0.012 (0.000-0.034) ng/mL 07/21/20 Range/Units 01:17 AST (14-36) U/L Troponin I <0.012 (0.000-0.034) ng/mL Coagulation 07/20/20 Range/Units 18:55 PT 10.6 (9.0-12.0) sec APTT 22.4 (22.0-30.0) sec CBC 07/20/20 Range/Units 18:55 WBC 6.4 (3.8-10.6) k/uL RBC 4.66 (3.80-5.40) m/uL Hgb 13.8 (11.4-16.0) gm/dL Hct 39.6 (34.0-46.0) % Plt Count 196 (150-450) k/uL Comprehensive Metabolic Panel 07/20/20 Range/Units 18:55 Sodium 138 (137-145) mmol/L Potassium 3.4 L (3.5-5.1) mmol/L Chloride 104 (98-107) mmol/L Carbon Dioxide 23 (22-30) mmol/L BUN 26 H (7-17) mg/dL Creatinine 1.10 H (0.52-1.04) mg/dL Glucose 98 (74-99) mg/dL Calcium 9.5 (8.4-10.2) mg/dL AST 23 (14-36) U/L ALT 14 (4-34) U/L Alkaline Phosphatase 52 (38-126) U/L Total Protein 6.8 (6.3-8.2) g/dL Albumin 4.2 (3.5-5.0) g/dL Current Medications Generic Name Dose Route Start Last Admin Trade Name Freq PRN Reason Stop Dose Admin Acetaminophen/Codeine Phosphate 1 each 07/20/20 21:28 Acetaminophen-Codeine 300-30mg Tab PO DAILY PRN Pain Alprazolam 0.5 mg 07/21/20 09:00 07/21/20 07:40 Alprazolam 0.5 Mg Tab PO 0.5 mg BID ELIZABETH Administration Aminophylline 100 mg 07/21/20 08:36 Aminophylline 500 Mg/20 Ml Vial IV 07/21/20 12:36 ONCE PRN Patient Response Amlodipine Besylate 5 mg 07/21/20 21:00 Amlodipine 5 Mg Tab PO HS ELIZABETH Aspirin 325 mg 07/21/20 09:00 07/21/20 07:40 Aspirin 325 Mg Tab PO 325 mg DAILY ELIZABETH Administration Baclofen 10 mg 07/20/20 21:28 Baclofen 10 Mg Tab PO BID PRN MUSCLE SPASMS Caffeine Citrate 60 mg 07/21/20 08:36 Caffeine Citrate 60 Mg/3 Ml Vial IV 07/21/20 12:36 ONCE PRN Patient Response Citalopram Hydrobromide 20 mg 07/21/20 21:00 Citalopram Hydrobromide 20 Mg Tab PO HS ELIZABETH Lisinopril/HCTZ 1 each 07/21/20 09:00 07/21/20 08:32 Lisinopril-Hctz 20-25 Mg 1 Each Tab PO 1 each DAILY ELIZABETH Administration Latanoprost 1 drops 07/21/20 21:00 Latanoprost 0.005% Ophth Drops 2.5 Ml Btl BOTH EYES HS [facility] Metoprolol Tartrate 25 mg 07/21/20 21:00 Metoprolol Tartrate 25 Mg Tab PO HS [facility] Morphine Sulfate 4 mg 07/20/20 20:38 Morphine Sulfate 4 Mg/Ml Syringe IV Q4HR PRN Severe Pain Multivitamins 1 each 07/21/20 09:00 07/21/20 07:35 Multivitamins, Thera 1 Each Tab PO Not Given DAILY [facility] Naloxone HCl 0.2 mg 07/20/20 20:38 Naloxone 0.4 Mg/Ml 1 Ml Vial IV Q2M PRN Opioid Reversal Ondansetron HCl 4 mg 07/20/20 20:38 Ondansetron 4 Mg/2 Ml Vial IVP Q8HR PRN Nausea And Vomiting Regadenoson 0.4 mg 07/21/20 08:36 Regadenoson 0.4 Mg/5 Ml Syringe IV 07/21/20 12:36 ONCE PRN Per Protocol Intake and Output 07/20/20 07/21/20 07/21/20 22:59 06:59 14:59 Other: Weight 76.204 kg 07/20/20 18:55 07/20/20 18:55
--- NOTE | 2020-07-21 11:22 | NM ---
EXAMINATION TYPE: NM stress lexiscan cardiolite DATE OF EXAM: 07/21/2020 COMPARISON: NONE HISTORY: Precordial chest pain and abnormal EKG TECHNIQUE: After the intravenous administration of 9.8 mCi Tc 99m Sestamibi - Cardiolite resting SPE CT images acquired 48 minutes post injection. The patient received 0.4mg Lexiscan, 25.5 mCi Tc 99m Sestamibi - Stress images obtained [address] injection FINDINGS: Review of stress and rest SPECT images demonstrates decreased perfusion involving the cardiac apex co mpatible with stress-induced ischemia. Gated analysis shows normal wall motion with an estimated left ventricular ejection fraction of 55 %. IMPRESSION: I suspect stress-induced ischemia involving the cardiac apex. Correlate clinically.
[2020-07-21] MEDS ORDERED: NITROGLYCERIN SL TABS 0.4 MG TAB SUBLINGUAL PRN (12:16)
--- NOTE | 2020-07-21 13:39 | P.HPIM ---
History of Present Illness H&P Date: 07/21/20 Chief Complaint: Chest pain and shortness of breath, severe headache and iesha maciej, history o HISTORY OF PRESENT ILLNESS 74-year-old female one of Dr. Emmanuel Lepe's patient with past medical history of hypertension, hyperlipidemia, panic arthritis is known to have history of frequent migraine seen Dr. Chet Miller neurology as an outpatient has been well treated manage. Patient developed to have episodes of migraine headache and subsequently developed to have midsternal chest pain along with worsening shortness of breath or symptoms became slightly bit worse nonexertional basis no palpitation or lightheadedness developed to have mild na usea with worsening headache, patient ended up coming to the emergency department where was seen and evaluated her EKG showed slight inferior Q waves agent determined slight T waves inversion in V1 and V2 no baseline to compare to. Her lab shows normal troponin, mildly elevated BUN/creatinine potassium was 3.4 only. COVID-19 testing were negative. With the current symptom decided to admit patient to the hospital for serial CK and troponin seeing cardiology and plan to do an echo and stress test if all testing are negative patient can be discharged home if not intervention will be done. REVIEW OF SYSTEMS Constitutional: No fever, no chills, no night sweats. No weight change. No weakness, fatigue or lethargy. No daytime sleepiness. EENT: No headache. No blurred vision or double vision, no loss of vision. No loss of Hearing, no ringing in the ears, no dizziness. No nasal drainage or congestion. No epistaxis. No sore throat. Lungs: Positive chest pain with mild shortness of breath cough or wheezes Cardiovascular: Positive chest pain and palpitation, no lower extremity edema. . No paroxysmal nocturnal dyspnea. No orthopnea. No lightheadedness or d izziness. No syncopal episodes. Abdominal: No abdominal pain. No nausea, vomiting. No diarrhea. No constipation. No bloody or tarry stools.. No loss of appetite. Genitourinary: No dysuria, increased frequency, urgency. No urinary retention. Musculoskeletal: No myalgias. No muscle weakness, no gait dysfunction, no frequent falls. No back pain. No neck pain. Integumentary: No wounds, no lesions. No rash or pruritus. No unusual bruising. No change in hair or nails. Neurologic: No aphasia. No facial droop. No change in mentation. No head injury.. No paralysis. No paresthesia. Mild headache and migraine Psychiatric: No depression. No anxiety. No mood swings. Endocrine: No abnormal blood sugars. No weight change. No excessive sweating or thirst. No cold intolerance. 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 FAMILY HISTORY Her mom age 91 from end-stage dementia, father dying is 74 from cancer of the lung with metastasis. Patient has one sister living and well for children with no major medical problem. PHYSICAL EXAMINATION Gen: This is a 74-year-old does not look in any respiratory distress not having chest pain or angina time was exam. HEENT: Head is atraumatic, normocephalic. Pupils equal, round. Sclerae is anicteric. NECK: Supple. No JVD. No lymphadenopathy. No thyromegaly. LUNGS: Clear to auscultation. No wheezes or rhonchi. No intercostal retractions. HEART: Regular rate and rhythm. No murmur. ABDOMEN: Soft. Bowel sounds are present. No masses. No tenderness. EXTREMITIES: No pedal edema. No calf tenderness. NEUROLOGICAL: Patient is awake, alert and oriented x3. Cranial nerves 2 through 12 are grossly intact. ASSESSMENT AND PLAN 1. Atypical chest pain: With slightly abnormal EKG patient be hospitalized CK with troponin 3 to be done see cardiology probably going for stress test and echocardiogram if no abnormality testing are negative patient can be discharged home otherwise she might need an intervention. 2. Abnormal stress test with Lexiscan show slight stress-induced ischemia involving the cardiac apex will be evaluated by cardiology for need of heart cath. 3. Migraine headache: Patient can be on fewer set on as needed basis. 4. Hypertension: Continue patient on enalapril hydrochlorothiazide 10/25 mg daily along with amlodipine 5 mg a day and metoprolol titrate 25 mg daily at be dtime. 5. Hyperlipidemia: On diet control repeat lipid panel answer patient on atorvastatin. 6. Mild arrhythmia: Has been on metoprolol titrate doing well so far. 7. Chronic neck pain and lower back pain decided current migraine patient is doing baclofen along with serous at with codeine. 8. GI prophylaxis: Patient will be on Pepcid 20 mg daily 9. DVT prophylaxis: Knee-high QUIANA hose and early mobilization will be done. 10. Depression: Has been on Celexa resume medication. 11 acute kidney injury: GFR still running at 49 continue mild hydration repeat BUN/creatinine 24 hours. 12. COVID-19 testing were negative, patient was admitted to the hospital in pandemic time. Patient will be admitted to the hospital for a minimum of 2 night stay. Past Medical History Past Medical History: Eye Disorder, Hyperlipidemia, Hypertension, Osteoarthritis (OA) Additional Past Medical History / Comment(s): Migraines, arthritis bilateral knees, bilateral eye cataracts History of Any Multi-Drug Resistant Organisms: None Reported Past Surgical History: Adenoidectomy, Tonsillectomy Past Anesthesia/Blood Transfusion Reactions: No Reported Reaction Smoking Status: Former smoker - Past Family History Father Family Medical History: Cancer, Congestive Heart Failure (CHF) Additional Family Medical History / Comment(s): Father of lung cancer at the age of 74 yrs. Mother Family Medical History: Dementia Additional Family Medical History / Comment(s): Mother of dementia at the age of 91 yrs. Sister(s) Family Medical History: No Reported History Daughter(s) Family Medical History: No Reported History Medications and Allergies Home Medications Medication Instructions Recorded Confirmed Type ALPRAZolam [Xanax] 0.5 mg PO BID 02/08/15 07/20/20 History Citalopram Hydrobromide [CeleXA] 20 mg PO HS 02/08/15 07/20/20 History Latanoprost Ophth [Xalatan 0.005%] 1 drop BOTH EYES HS 02/08/15 07/20/20 History Enalapril/Hydrochlorothiazide 1 tab PO DAILY 02/06/20 07/20/20 History [Enalapril/Hydrochlorothiazide 10-25 mg Tablet] Metoprolol Tartrate 25 mg PO HS 02/06/20 07/20/20 History amLODIPine [Norvasc] 5 mg PO HS 02/06/20 07/20/20 History Acetaminophen-Codeine 300-30mg 1 tab PO DAILY PRN 07/20/20 07/20/20 History [Tylenol w/codeine #3] Baclofen 10 mg PO BID PRN 07/20/20 07/20/20 History Multivitamins, Thera [Multivitamin 1 tab PO DAILY 07/20/20 07/20/20 History (formulary)] Turmeric Root Extract [Turmeric] 500 mg PO DAILY 07/20/20 07/20/20 History Allergies Allergy/AdvReac Type Severity Reaction Status Date / Time epinephrine Allergy Unknown Verified 07/20/20 21:22 apple AdvReac Rapid Verified 07/20/20 21:22 Heart Rate ciprofloxacin AdvReac Unknown Verified 07/20/20 21:22 monosodium glutamate AdvReac Rapid Verified 07/20/20 21:22 Heart Rate preservatives AdvReac Rapid Uncoded 07/20/20 21:22 Heart Rate Physical Exam Vitals: Vital Signs Temp Pulse Pulse Resp BP BP Pulse Ox 07/21/20 07:32 98.0 F 57 L 18 129/57 96 07/21/20 05:44 52 L 16 125/62 96 07/20/20 23:00 64 16 125/57 99 07/20/20 22:00 63 18 122/53 99 07/20/20 20:00 62 16 129/57 99 07/20/20 19:04 72 16 140/65 99 07/20/20 17:57 98 F 62 18 152/73 99 Intake and Output 07/20/20 07/21/20 07/21/20 22:59 06:59 14:59 Other: Weight 76.204 kg 76.2 kg Results CBC & Chem 7: 07/20/20 18:55 07/20/20 18:55 Labs: Abnormal Lab Results - Last 24 Hours (Table) 07/20/20 Range/Units 18:55 Potassium 3.4 L (3.5-5.1) mmol/L BUN 26 H (7-17) mg/dL Creatinine 1.10 H (0.52-1.04) mg/dL Thrombosis Risk Factor Assmnt - Choose All That Apply Any of the Below Risk Factors Present?: Yes Other Risk Factors: Yes Each Risk Factor Represents 3 Points: Age 75 years or older Other congenital or acquired thrombophilia - If yes, enter type in comment: No Thrombosis Risk Factor Assessment Total Risk Factor Score: 3 Thrombosis Risk Factor Assessment Level: Moderate Risk
--- NOTE | 2020-07-21 13:52 | EST ---
EXERCISE STRESS AGE: 74 SEX: Female HT: 5'10" WT: 167 lbs. PROTOCOL: Lexiscan Cardiolite STAGE: N/A DURATION OF EXERCISE: N/A HEART RATE REST: 50 BLOOD PRESSURE REST: 139/70 MAXIMUM HEART RATE ACHIEVED: 87 MAXIMUM BLOOD PRESSURE: 151/54 85% MPHR: 122 100% MPHR: 148 METS: N/A INDICATIONS: Chest pain CLINICAL INFORMATION: Baseline rhythm is sinus mechanism, rate of 50, normal axis and intervals. T-wave inversion anteriorly. Baseline blood pressure 139/70 mmHg. Patient received injection of Lexiscan. Electrocardiograph monitoring revealed no evidence of diagnostic ischemic ST deviation. Rare PVCs were noted. Cardiolite was injected per protocol. CONCLUSION: 1. Nondiagnostic electrocardiograph stress testing. 2. Rare PVCs. 3. Nuclear images will be reported separately. MMODL / IJN: [id number] /
[2020-07-21] MEDS ORDERED: LATANOPROST 0.005% OPHTH DROPS 2.5 ML BTL BOTH EYES SCH (21:00)
[2020-07-21] MEDS ORDERED: METOPROLOL TARTRATE 25 MG TAB PO SCH (21:00)
[2020-07-21] MEDS ORDERED: CITALOPRAM HYDROBROMIDE 20 MG TAB PO SCH (21:00)
[2020-07-21] MEDS ORDERED: amLODIPine 5 MG TAB PO SCH (21:00)
[2020-07-21] MEDS ORDERED: SODIUM CHLORIDE 0.9% 1,000 ML in EMPTY BAG 1 BAG IV ONE (23:59)
[2020-07-22] MEDS: ALPRAZolam 0.5 MG TAB PO SCH (05:33)
[2020-07-22] MEDS: MULTIVITAMINS, THERA 1 EACH TAB PO SCH (05:34)
[2020-07-22 05:51] LABS: Glucose,Whole Blood 98 mg/dL (75-99)
[2020-07-22 05:55] LABS: HCT 37.5 % (34.0-46.0); MCH 29.8 pg (25.0-35.0); MCHC 34.7 g/dL (31.0-37.0); MCV 85.8 fL (80.0-100.0); Mean Platelet Volume 7.8; Platelet Count 180 k/uL (150-450); RBC 4.37 m/uL (3.80-5.40); WBC 6.4 k/uL (3.8-10.6)
[2020-07-22] MEDS ORDERED: ASPIRIN 325 MG TAB PO ONE (06:00)
[2020-07-22] MEDS ORDERED: ATORVASTATIN 80 MG TAB PO ONE (06:00)
[2020-07-22 06:23] LABS: ALT 12 U/L (4-34); AST 22 U/L (14-36); African American GFR (CKD) 61 (>60 ml/min/1.73 sqM); Albumin 3.6 g/dL (3.5-5.0); Albumin/Globulin Ratio 1.5; Alkaline Phosphatase 42 U/L (38-126); Anion Gap 6 mmol/L; Blood Urea Nitrogen 21 mg/dL (7-17); Carbon Dioxide 28 mmol/L (22-30); Chloride 107 mmol/L (98-107); Cholesterol 235 mg/dL (<200); Globulin 2.4 g/dL; Glucose 92 mg/dL (74-99); HDL Cholesterol 70 mg/dL (40-60); LDL Cholesterol,Calculated 150 mg/dL (0-99); Non-African American GFR(CKD) 53 (>60 ml/min/1.73 sqM); Potassium 3.4 mmol/L (3.5-5.1); Sodium 141 mmol/L (137-145); Total Bilirubin 0.7 mg/dL (0.2-1.3); Triglycerides 76 mg/dL (<150)
[2020-07-22] MEDS ORDERED: Potassium Replacement Protocol 1 EACH MISC MISCELLANE PRN (06:43)
[2020-07-22] MEDS ORDERED: HEPARIN SODIUM,PORCINE 10,000 UNIT in SODIUM CHLORIDE 0.9% 1,000 ML IRRIGATION PRN (07:00)
[2020-07-22] MEDS ORDERED: HEPARIN SODIUM,PORCINE 2,500 UNIT in SODIUM CHLORIDE 0.9% 250 ML IRRIGATION PRN (07:00)
[2020-07-22] MEDS: POTASSIUM CHLORIDE ER 20 MEQ TAB.ER PO SCH ×2 (07:04→08:35)
[2020-07-22] MEDS: LISINOPRIL-HCTZ 20-25 MG 1 EACH TAB PO SCH (08:35)
[2020-07-22] MEDS ORDERED: FAMOTIDINE 20 MG TAB PO SCH (09:00)
--- NOTE | 2020-07-22 10:23 | P.PN ---
Subjective Progress Note Date: 07/22/20 HISTORY OF PRESENT ILLNESS 74-year-old female one of Dr. Emmanuel Lepe's patient with past medical history of hypertension, hyperlipidemia, panic arthritis is known to have histo ry of frequent migraine seen Dr. Chet Miller neurology as an outpatient has been well treated manage. Patient developed to have episodes of migraine headache and subsequently developed to have midsternal chest pain along with worsening shortness of breath or symptoms became slightly bit worse non exertional basis no palpitation or lightheadedness developed to have mild nausea with worsening headache, patient ended up coming to the emergency department where was seen and evaluated her EKG showed slight inferior Q waves agent determined slight T waves inversion in V1 and V2 no baseline to compare to. Her lab shows normal troponin, mildly elevated BUN/creatinine potassium was 3.4 only. COVID-19 testing were negative. With the current symptom decided to admit patient to the hospital for serial CK and troponin seeing cardiology and plan to do an echo and stress test if all testing are negative patient can be discharged home if not intervention will be done. 07/22: Lexiscan stress test revealed stress-induced ischemia involving the cardiac apex. Patient is scheduled for heart catheterization today. Patient denies having chest pain or shortness of breath. Patient has been afebrile, heart rate 45-61. Blood pressure 118/58, pulse ox 97% on room air. CBC unremarkable. Potassium 3.4, BUN 21 and creatinine 1.03. Triglycerides 76, cholesterol 235, LDL 150, HDL 70. REVIEW OF SYSTEMS Constitutional: No fever, no chills, no night sweats. No weight change. No weakness, fatigue or lethargy. No daytime sleepiness. EENT: No headache. No blurred vision or double vision, no loss of vision. No loss of Hearing, no ringing in the ears, no dizziness. No nasal drainage or congestion. No epistaxis. No sore throat. Lungs: denies chest pain with no shortness of breath cough or wheezes Cardiovascular: No chest pain and palpitation, no lower extremity edema. . No paroxysmal nocturnal dyspnea. No orthopnea. No lightheadedness or dizziness. No syncopal episodes. Abdominal: No abdominal pain. No nausea, vomiting. No diarrhea. No constipation. No bloody or tarry stools.. No loss of appetite. Genitourinary: No dysuria, increased frequency, urgency. No urinary retention. Musculoskeletal: No myalgias. No muscle weakness, no gait dysfunction, no frequent falls. No back pain. No neck pain. Integumentary: No wounds, no lesions. No rash or pruritus. No unusual bruising. No change in hair or nails. Neurologic: No aphasia. No facial droop. No change in mentation. No head injury.. No paralysis. No paresthesia. Mild headache and migraine Psychiatric: No depression. No anxiety. No mood swings. Endocrine: No abnormal blood sugars. No weight change. No excessive sweating or thirst. No cold intolerance. PHYSICAL EXAMINATION Gen: This is a 74-year-old resting in bed with no respiratory distress. HEENT: Head is atraumatic, normocephalic. Pupils equal, round. Sclerae is anicteric. NECK: Supple. No JVD. No lymphadenopathy. No thyromegaly. LUNGS: Clear to auscultation. No wheezes or rhonchi. No intercostal retractions. HEART: Regular rate and rhythm. No murmur. ABDOMEN: Soft. Bowel sounds are present. No masses. No tenderness. EXTREMITIES: No pedal edema. No calf tenderness. NEUROLOGICAL: Patient is awake, alert and oriented x3. Cranial nerves 2 through 12 are grossly intact. ASSESSMENT AND PLAN 1. Atypical chest pain: With slightly abnormal EKG patient be hospitalized CK with troponin 3 to be done see cardiology, abnormal stress test. Heart catheterization today. Echocardiogram. 2. Abnormal stress test with Lexiscan show slight stress-induced ischemia inv olving the cardiac apex will be evaluated by cardiology for need of heart cath. 3. Migraine headache: Patient can be on fewer set on as needed basis. 4. Hypertension: Continue patient on enalapril hydrochlorothiazide 10/25 mg daily along with amlodipine 5 mg a day and metoprolol titrate 25 mg daily at bedtime. 5. Hyperlipidemia: On diet control repeat lipid panel answer patient on atorvastatin. 6. Mild arrhythmia: Has been on metoprolol titrate doing well so far. 7. Chronic neck pain and lower back pain decided current migraine patient is doing baclofen along with serous at with codeine. 8. GI prophylaxis: Patient will be on Pepcid 20 mg daily 9. DVT prophylaxis: Knee-high QUIANA hose and early mobilization will be done. 10. Depression: Has been on Celexa resume medication. 11. acute kidney injury: GFR still running at 49 continue mild hydration repeat BUN/creatinine 24 hours. 12. COVID-19 testing were negative, patient was admitted to the hospital in pandemic time. DISCHARGE PLAN home Impression and plan of care have been directed as dictated by the signing physician. Roslyn Siddiqui nurse practitioner acting as scribe for signing veila devries. Objective - Vital Signs Vital signs: Vital Signs Temp 98.5 F 07/22/20 07:00 Pulse 45 L 07/22/20 07:00 Resp 18 07/22/20 07:00 BP 118/58 07/22/20 07:00 Pulse Ox 97 07/22/20 07:00 Intake & Output 07/21/20 07/22/20 07/22/20 18:59 06:59 18:59 Weight 76.2 kg Other: Voiding Method Toilet Toilet # Voids 1 1 # Bowel Movements 0 0 - Labs CBC & Chem 7: 07/22/20 05:04 07/22/20 05:04 Labs: Abnormal Lab Results - Last 24 Hours (Table) 07/22/20 Range/Units 05:04 Potassium 3.4 L (3.5-5.1) mmol/L BUN 21 H (7-17) mg/dL Total Protein 6.0 L (6.3-8.2) g/dL Cholesterol 235 H (<200) mg/dL LDL Cholesterol, Calc 150 H (0-99) mg/dL HDL Cholesterol 70 H (40-60) mg/dL
[2020-07-22] MEDS ORDERED: fentaNYL (PF) 50 MCG/ML 2 ML AMP ONE (11:09)
[2020-07-22] MEDS ORDERED: VERAPAMIL 2.5 MG/ML 2 ML AMP ONE (11:09)
[2020-07-22] MEDS ORDERED: LIDOCAINE 1% INJ 10MG/ML (20 ML MDV) ONE (11:09)
[2020-07-22] MEDS ORDERED: SODIUM CHLORIDE 0.9% 1,000 ML IV ONE (11:25)
[2020-07-22] MEDS ORDERED: fentaNYL (PF) 50 MCG/ML 2 ML AMP IV ONE (11:35)
[2020-07-22] MEDS ORDERED: LIDOCAINE 1% INJ 10MG/ML (20 ML MDV) SQ ONE (11:37)
[2020-07-22] MEDS ORDERED: VERAPAMIL SYRINGE (5 MG/10 ML) INTRAARTER ONE (11:39)
[2020-07-22] MEDS ORDERED: MIDAZOLAM 2 MG/2 ML VIAL IV ONE (11:40)
[2020-07-22] MEDS ORDERED: IOPAMIDOL-370 125ML BTL INJ ONE (11:53)
[2020-07-22] MEDS ORDERED: RX INFO: IV CONTRAST WAS GIVEN 1 EACH MISC MISCELLANE PRN (11:56)
[2020-07-22] MEDS ORDERED: SODIUM CHLORIDE 0.9% 1,000 ML IV SCH (12:00)
[2020-07-22 12:14] VITALS: TEMP 98.4
[2020-07-22 12:29] VITALS: RESP 16
--- NOTE | 2020-07-22 12:35 | P.DS ---
Providers Date of admission: 07/21/20 16:36 Expected date of discharge: 07/22/20 Attending physician: Haris Rios Consults: 07/20/20 20:38 Consult Physician Routine Consulting Provider: [facility] Consult Reason/Comments: Chest pain Do you want consulting provider notified?: Yes Primary care physician: Emmanuel Lepe [facility] Course: HISTORY OF PRESENT ILLNESS 74-year-old female one of Dr. Emmanuel Lepe's patient with past medical history of hypertension, hyperlipidemia, panic arthritis is known to have history of frequent migraine seen Dr. Chet Miller neurology as an outpatient has been well treated manage. Patient developed to have episodes of migraine headache and subsequently developed to have midsternal chest pain along with worsening shortness of breath or symptoms became slightly bit worse nonexertional basis no palpitation or lightheadedness developed to have mild nausea with worsening headache, patient ended up coming to the emergency department where was seen and evaluated her EKG showed slight inferior Q waves agent determined slight T waves inversion in V1 and V2 no baseline to compare to. Her lab shows normal troponin, mildly elevated BUN/creatinine potassium was 3.4 only. COVID-19 testing were negative. With the current symptom decided to admit patient to the hospital for serial CK and troponin seeing cardiology and plan to do an echo and stress test if all testing are negative patient can be discharged home if not intervention will be done. 07/22: Lexiscan stress test revealed stress-induced ischemia involving the cardiac apex. Patient is scheduled for heart catheterization today which came back with no significant coronary artery disease. Patient has been afebrile, heart rate 45-61. Blood pressure 118/58, pulse ox 97% on room air. CBC unremarkable. Potassium 3.4, BUN 21 and creatinine 1.03. Triglycerides 76, cholesterol 235, LDL 150, HDL 70. Patient will be discharged home today in stable condition. ASSESSMENT AND PLAN 1. Atypical chest pain 2. Abnormal stress test with Lexiscan show slight stress-induced ischemia involving the cardiac apex with normal cardiac cath. 3. Migraine headache 4. Hypertension 5. Hyperlipidemia 6. Mild arrhythmia 7. Chronic neck pain and lower back pain and migraine 8. Recurrent depression 9 Acute kidney injury 10. COVID-19 testing were negative, patient was admitted to the hospital in pandemic time. DISCHARGE PLAN Home Impression and plan of care have been directed as dictated by the signing physician. Roslyn Siddiqui nurse practitioner acting as scribe for signing physician. Patient Condition at Discharge: Good Plan - Discharge Summary Discharge Rx Participant: No New Discharge Prescriptions: New Atorvastatin [Lipitor] 40 mg PO DAILY #30 tab Continue ALPRAZolam [Xanax] 0.5 mg PO BID Citalopram Hydrobromide [CeleXA] 20 mg PO HS Latanoprost Ophth [Xalatan 0.005%] 1 drop BOTH EYES HS amLODIPine [Norvasc] 5 mg PO HS Enalapril/Hydrochlorothiazide [Enalapril/Hydrochlorothiazide 10-25 mg Tablet] 1 tab PO DAILY Metoprolol Tartrate 25 mg PO HS Acetaminophen-Codeine 300-30mg [Tylenol w/codeine #3] 1 tab PO DAILY PRN PRN Reason: Pain Baclofen 10 mg PO BID PRN PRN Reason: MUSCLE SPASMS Turmeric Root Extract [Turmeric] 500 mg PO DAILY Multivitamins, Thera [Multivitamin (formulary)] 1 tab PO DAILY Discharge Medication List ALPRAZolam [Xanax] 0.5 mg PO BID 02/08/15 [History] Citalopram Hydrobromide [CeleXA] 20 mg PO HS 02/08/15 [History] Latanoprost Ophth [Xalatan 0.005%] 1 drop BOTH EYES HS 02/08/15 [History] Enalapril/Hydrochlorothiazide [Enalapril/Hydrochlorothiazide 10-25 mg Tablet] 1 tab PO DAILY 02/06/20 [History] Metoprolol Tartrate 25 mg PO HS 02/06/20 [History] amLODIPine [Norvasc] 5 mg PO HS 02/06/20 [History] Acetaminophen-Codeine 300-30mg [Tylenol w/codeine #3] 1 tab PO DAILY PRN 07/20/20 [History] Baclofen 10 mg PO BID PRN 07/20/20 [History] Multivitamins, Thera [Multivitamin (formulary)] 1 tab PO DAILY 07/20/20 [History] Turmeric Root Extract [Turmeric] 500 mg PO DAILY 07/20/20 [History] Atorvastatin [Lipitor] 40 mg PO DAILY #30 tab 07/22/20 [Rx] Follow up Appointment(s)/Referral(s): Duy Jamil MD [STAFF PHYSICIAN] - 1 Week Emmanuel Lepe MD [Primary Care Provider] - 1-2 days
--- NOTE | 2020-07-22 13:12 | CC ---
CARDIAC CATHETERIZATION REPORT Mrs. Thomas is a 74-year-old female with no prior documented history of coronary artery disease, history of hypertension, hyperlipidemia, who presented with symptoms of chest discomfort. Her cardiac enzymes and EKG revealed no acute changes. She underwent myocardial perfusion imaging that revealed evidence of apical ischemia. In view of that, recommendation was made regarding cardiac catheterization. The procedure as well as the risks and the complications were discussed with the patient who is in full understanding and agreement. PROCEDURE: Patient was brought to the chemistry laboratory technician in a fasting semi-sedated state after receiving fentanyl and Benadryl and achieving moderate conscious sedated state. Using Xylocaine anesthesia and Seldinger technique, a 6-Kosovan sheath was introduced in the right radial artery. Selective right and left coronary angiography performed using 5-Kosovan 3.5 bend right and left Sophia catheter. Multiple views of the coronary artery including hemiaxial views were obtained. The right Sophia was used to cross the aortic valve. Left ventricular end-diastolic pressure was calculated. Following that, the catheter and sheath were removed. Hemostasis was obtained with deployment of a TR band. There was no immediate complication. Patient was returned to her room in stable condition. Of note, the patient received 4000 units of intravenous heparin as well as intra-arterial verapamil. FINDINGS: FLUOROSCOPY: There was calcification involving the LAD and the right coronary artery. LEFT MAIN: This is a large-sized vessel short bifurcating into left circumflex and the left anterior descending artery. Left main artery has no evidence of high-grade stenosis. LEFT ANTERIOR DESCENDING ARTERY: This is a large-sized vessel reaching to the apex with a wraparound apex segment giving rise to a proximal large diagonal branch. The left anterior descending artery in the mid segment after takeoff of the first septal material handling crew supervisor has 20% to 30% plaque. The rest of the vessel has no high-grade stenosis. LEFT CIRCUMFLEX: This is a nondominant vessel giving rise to a very proximal first obtuse marginal branch. The second obtuse marginal branch is small in caliber. The left circumflex as well as branches have no evidence of obstructive coronary artery disease. RIGHT CORONARY ARTERY: This is a large dominant vessel bifurcating PDA and posterolateral segment and branches. The mid right coronary artery has a 30% to 40% plaque. The rest of the vessel has no high-grade stenosis. LEFT VENTRICULOGRAM: Left ventriculogram was not performed. HEMODYNAMICS: There was no gradient across the aortic valve. The left ventricular end-diastolic pressure was 14-16 mmHg. CONCLUSION: 1. Calcified coronary artery. 2. Mild disease in the mid RCA and the mid LAD. RECOMMENDATION: In view of finding anatomy, I recommend continue medical therapy with aggressive coronary risk modifications that have been initiated. Those findings and recommendation were discussed with the patient and her daughter over the phone and they are in full understanding and agreement. Duration of the procedure is 16 minutes. MMODL / IJN: [id number] /
--- NOTE | 2020-07-22 13:12 | LTR ---
July 22, 2020 Re: Kaci Thomas Dear Dr. Lepe: I had the opportunity to perform cardiac catheterization on Mrs. Thomas at [facility] on the July 22 and a full copy of the procedure note will be forwarded to you. In brief, she was found to have mild obstructive disease involving the RCA and the LAD with a calcified coronary arteries and based on those findings I recommend continue medical therapy with aggressive coronary risk modifications that have been initiated. Thank you again for allowing me the opportunity to participate in her care. Please feel free to call for any questions. Sincerely yours, MD ROSSANA YorkL / STEPHANIEN: [id number] /
[2020-07-22 15:39] VITALS: BP 144/68; PULSE 49
[2020-07-23] MEDS ORDERED: ASPIRIN 81 MG PO SCH (09:00)
[2020-07-23] MEDS ORDERED: ATORVASTATIN 40 MG TAB PO SCH (09:00)
== END 2020-07-22 17:02 | disposition home or self-care (01) ==
LOC: EC 17:52 → 6NMEDSUR 20:34 → INTOOBSV 07-21 16:36 → OBSVTOIN 07-21 16:36 → UNDODISIN 07-22 17:02
PROVIDERS: ADMIT Internal Medicine Geriatric Medicine; ATTEND Internal Medicine Geriatric Medicine
DX: R07.89 Other chest pain (principal); R94.39 Abnormal result of other cardiovascular function study; R06.02 Shortness of breath; R94.31 Abnormal electrocardiogram [ECG] [EKG]; R79.89 Other specified abnormal findings of blood chemistry; G43.909 Migraine, unspecified, not intractable, without status migrainosus; I10 Essential (primary) hypertension; E78.5 Hyperlipidemia, unspecified; I49.9 Cardiac arrhythmia, unspecified; F41.9 Anxiety disorder, unspecified; I25.10 Atherosclerotic heart disease of native coronary artery without angina pectoris; I25.84 Coronary atherosclerosis due to calcified coronary lesion; G89.29 Other chronic pain; M54.2 Cervicalgia; M54.5 Low back pain; F33.9 Major depressive disorder, recurrent, unspecified; N17.9 Acute kidney failure, unspecified; Z20.822 Contact with and (suspected) exposure to COVID-19; M19.90 Unspecified osteoarthritis, unspecified site; M17.0 Bilateral primary osteoarthritis of knee; Z87.891 Personal history of nicotine dependence; Z79.899 Other long term (current) drug therapy; Z98.890 Other specified postprocedural states; Z90.89 Acquired absence of other organs; Z88.8 Allergy status to other drugs, medicaments and biological substances; Z88.1 Allergy status to other antibiotic agents; Z91.02 Food additives allergy status; Z91.018 Allergy to other foods; Z81.8 Family history of other mental and behavioral disorders; Z80.1 Family history of malignant neoplasm of trachea, bronchus and lung; Z82.49 Family history of ischemic heart disease and other diseases of the circulatory system
CPT/HCPCS: 93005 ×2; 96361; 96374; 96375; 99285; 36415; 94760; 93017; 93458; 80061; 80053 ×2; 83690; 83735; 84484 ×2; 85025; 85027; 85610; 85730; 87636; 71046; 78452; G0378 ×3; C1769; C1894; A9500; J2250; J1200; J2765; J2001; J3010; J2270; J2785; J1644; Q9967

== ENCOUNTER 2022-09-14 13:34 | Emergency (ER) | payer MEDICARE ==
[2022-09-14 13:46] VITALS: TEMP 97.7
[2022-09-14 15:09] LABS: Basophils % (A) 0 %; Eosinophils # (A) 0.1 k/uL (0-0.7); Eosinophils % (A) 1 %; HCT 39.4 % (34.0-46.0); HGB 13.2 gm/dL (11.4-16.0); Lymphocytes # (A) 1.1 k/uL (1.0-4.8); Lymphocytes % (A) 17 %; MCH 29.1 pg (25.0-35.0); MCHC 33.4 g/dL (31.0-37.0); Mean Platelet Volume 8.2; Monocytes # (A) 0.3 k/uL (0-1.0); Monocytes % (A) 5 %; Neutrophils # (A) 4.7 k/uL (1.3-7.7); Neutrophils % (A) 74 %; Platelet Count 241 k/uL (150-450); RBC 4.53 m/uL (3.80-5.40); RDW 13.5 % (11.5-15.5); WBC 6.3 k/uL (3.8-10.6)
[2022-09-14 15:23] LABS: ALT 19 U/L (4-34); AST 27 U/L (14-36); African American GFR (CKD) 56 (>60 ml/min/1.73 sqM); Albumin 4.2 g/dL (3.5-5.0); Alkaline Phosphatase 56 U/L (38-126); Anion Gap 8 mmol/L; Blood Urea Nitrogen 22 mg/dL (7-17); Calcium 9.2 mg/dL (8.4-10.2); Carbon Dioxide 22 mmol/L (22-30); Chloride 107 mmol/L (98-107); Glucose 111 mg/dL (74-99); Magnesium 1.7 mg/dL (1.6-2.3); Non-African American GFR(CKD) 49 (>60 ml/min/1.73 sqM); Potassium 3.6 mmol/L (3.5-5.1); Sodium 137 mmol/L (137-145); Total Bilirubin 0.6 mg/dL (0.2-1.3); Total Protein 6.6 g/dL (6.3-8.2)
[2022-09-14 15:26] LABS: Partial Thromboplastin Time 21.9 sec (22.0-30.0); Prothrombin Time 10.5 sec (9.0-12.0)
[2022-09-14 15:51] VITALS: RESP 18
--- NOTE | 2022-09-14 16:03 | ED ---
Chest Pain HPI - General Chief Complaint: Chest Pain Stated Complaint: chest pain Time Seen by Provider: 09/14/22 15:54 Source: patient Mode of arrival: EMS Limitations: no limitations - History of Present Illness Initial Comments: This patient is a 76-year-old woman who presents 7 evaluation of chest pain. The patient states that since about Monday she has not been feeling entirely normal. She states that at night she will wake up with a heartburn sensation. Then then starting around 11 this morning she noticed that she was having pressure in the substernal area. This lasted number of hours and was accompanied by feeling flushed in her face. This sensation has nearly entirely resolved now. She did not have dyspnea, diaphoresis, nausea or vomiting. MD Complaint: chest pain -: hour(s) Onset: during rest Pain Location: substernal Pain Radiation: none Severity: moderate Quality: other (Pressure) Consistency: now resolved Improves With: nothing Worsens With: nothing Treatments Prior to Arrival: none - Related Data Home Medications Medication Instructions Recorded Confirmed ALPRAZolam [Xanax] 0.5 mg PO BID 02/08/15 09/14/22 Citalopram Hydrobromide [CeleXA] 20 mg PO HS 02/08/15 09/14/22 Latanoprost Ophth [Xalatan 0.005%] 1 drop BOTH EYES HS 02/08/15 09/14/22 Enalapril/Hydrochlorothiazide 1 tab PO DAILY 02/06/20 09/14/22 [Enalapril/Hydrochlorothiazide 10-25 mg Tablet] amLODIPine [Norvasc] 5 mg PO HS 02/06/20 09/14/22 Multivitamins, Thera [Multivitamin 1 tab PO DAILY 07/20/20 09/14/22 (formulary)] Clobetasol 0.05% Solution 1 applic TOPICAL DAILY 09/14/22 09/14/22 Doxycycline Hyclate 100 mg PO BID 09/14/22 09/14/22 Rimegepant Sulfate [Nurtec Odt] 75 mg PO DAILY PRN 09/14/22 09/14/22 Allergies Allergy/AdvReac Type Severity Reaction Status Date / Time epinephrine Allergy Unknown Verified 09/14/22 17:46 apple AdvReac Rapid Verified 09/14/22 17:46 Heart Rate ciprofloxacin AdvReac Unknown Verified 09/14/22 17:46 monosodium glutamate AdvReac Rapid Verified 09/14/22 17:46 Heart Rate preservatives AdvReac Rapid Uncoded 07/20/20 21:22 Heart Rate Review of Systems ROS Statement: Those systems with pertinent positive or pertinent negative responses have been documented in the HPI. ROS Other: All systems not noted in ROS Statement are negative. Constitutional: Denies: fever, chills Respiratory: Denies: cough, dyspnea Cardiovascular: Reports: chest pain. Denies: palpitations, edema Gastrointestinal: Denies: abdominal pain, nausea, vomiting, diarrhea Genitourinary: Denies: dysuria, hematuria Musculoskeletal: Denies: back pain Skin: Denies: rash Neurological: Denies: headache, weakness, numbness EKG Findings - EKG Results: EKG: interpreted by SANJEEV, sinus rhythm, normal axis, normal QRS, normal ST/T, no acute changes EKG shows: bradycardia (Rate 56 bpm) Past Medical History Past Medical History: Eye Disorder, Hyperlipidemia, Hypertension, Osteoarthritis (OA) Additional Past Medical History / Comment(s): Migraines, arthritis bilateral knees, bilateral eye cataracts History of Any Multi-Drug Resistant Organisms: None Reported Past Surgical History: Adenoidectomy, Tonsillectomy Past Anesthesia/Blood Transfusion Reactions: No Reported Reaction Past Psychological History: Anxiety, Depression Smoking Status: Former smoker - Past Family History Father Family Medical History: Cancer, Congestive Heart Failure (CHF) Additional Family Medical History / Comment(s): Father of lung cancer at the age of 74 yrs. Mother Family Medical History: Dementia Additional Family Medical History / Comment(s): Mother of dementia at the age of 91 yrs. Sister(s) Family Medical History: No Reported History Daughter(s) Family Medical History: No Reported History General Exam Limitations: no limitations General appearance: alert, in no apparent distress Head exam: Present: atraumatic, normocephalic Eye exam: Present: normal appearance. Absent: scleral icterus, conjunctival injection ENT exam: Present: normal oropharynx Neck exam: Present: normal inspection Respiratory exam: Present: normal lung sounds bilaterally. Absent: respiratory distress, wheezes, rales, rhonchi, stridor Cardiovascular Exam: Present: regular rate, normal rhythm, normal heart sounds. Absent: systolic murmur, diastolic murmur, rubs, gallop GI/Abdominal exam: Present: soft. Absent: distended, tenderness, guarding, rebound, rigid, mass Extremities exam: Present: normal inspection, normal capillary refill. Absent: pedal edema, calf tenderness Back exam: Present: normal inspection Neurological exam: Present: alert Skin exam: Present: warm, dry, intact, normal color. Absent: rash Course Vital Signs 09/14/22 09/14/22 09/14/22 13:43 15:48 20:07 Temperature 97.7 F Pulse Rate 64 58 L 63 Respiratory 16 18 18 Rate Blood Pressure 137/68 139/62 143/72 O2 Sat by Pulse 98 99 97 Oximetry Chest Pain MDM - MDM This patient is a 76-year-old woman who had 2 view chest x-ray which I interpreted as being negative for acute infiltrate, pneumothorax, and congestive heart failure. The patient is 76-year-old woman here to have evaluation of chest pain that has resolved. The workup is unremarkable. I did discuss admission to have serial cardiac enzymes, telemetry monitoring, cardiology consultation, but the patient states she is feeling well and would like to go home. She understands there is risk of missed cardiac etiology but she will follow-up with her physician and she does agree to return if any symptoms recur or new symptoms develop. Was pt. sent in by a medical professional or institution ([facility], [employer], urgent care, hospital, or detention...) When possible be specific @ -[No] Did you speak to anyone other than the patient for history (EMS, parent, family, police, friend...)? What history was obtained from this source @ -[No] Did you review nursing and triage notes (agree or disagree)? Why? @ -[I reviewed and agree with nursing and triage notes] Were old charts reviewed (outside hosp., previous admission, EMS record, old EKG, old radiological studies, urgent care reports/EKG's, detention records)? Report findings @ -[No old charts were reviewed] Differential Diagnosis (chest pain, altered mental status, abdominal pain women, abdominal pain men, vaginal bleeding, weakness, fever, dyspnea, syncope, headache, dizziness, GI bleed, back pain, seizure, CVA, palpatations, mental health, musculoskeletal)? @ -[Differential Chest Pain: Stable Angina, Unstable Angina, STEMI, NSTEMI Aortic Dissection, Pneumothorax, Musculoskeletal, Esophageal Spasm GERD, Cholecystitis, Pancreatitis, Zoster, this is not meant to be an all-inclusive list. EKG interpreted by me (3pts min.). @ -[As above] X-rays interpreted by me (1pt min.). @ -[As above CT interpreted by me (1pt min.). @ -[None done] U/S interpreted by me (1pt. min.). @ -[None done] What testing was considered but not performed or refused? (CT, X-rays, U/S, labs)? Why? @ -[None] What meds were considered but not given or refused? Why? @ -[None] Did you discuss the management of the patient with other professionals (professionals i.e. , PA, BLIND INSTALLER, lab, RT, psych nurse, clinical social work aide, slab lifting supervisor, teacher, intelligence support officer, community case manager)? Give summary @ -[No] Was smoking cessation discussed for >3mins.? @ -[No] Was critical care preformed (if so, how long)? @ -[No] Were there social determinants of health that impacted care today? How? (Homelessness, low income, unemployed, alcoholism, drug addiction, transportation, low edu. Level, literacy, decrease access to med. care, [facility], rehab)? @ -[No] Was there de-escalation of care discussed even if they declined (Discuss DNR or withdrawal of care, Hospice)? DNR status @ -[No] What co-morbidities impacted this encounter? (DM, HTN, Smoking, COPD, CAD, Cancer, CVA, ARF, Chemo, Hep., AIDS, mental health diagnosis, sleep apnea, morbid obesity)? @ -[None] Was patient admitted / discharged? Hospital course, mention meds given and route, prescriptions, significant lab abnormalities, going to OR and other pertinent info. @ -[Discharged, as above Undiagnosed new problem with uncertain prognosis? @ -[No] Drug Therapy requiring intensive monitoring for toxicity (Heparin, Nitro, Insulin, Cardizem)? @ -[No] Were any procedures done? @ -[No] Diagnosis/symptom? @ -[Acute chest pain Acute, or Chronic, or Acute on Chronic? @ -[default] Uncomplicated (without systemic symptoms) or Complicated (systemic symptoms)? @ -[default] Side effects of treatment? @ -[No] Exacerbation, Progression, or Severe Exacerbation? @ -[No] Poses a threat to life or bodily function? How? (Chest pain, [place], CA, pneumonia, PE, COPD, DKA, ARF, appy, cholecystitis, CVA, Diverticulitis, Homicidal, Suicidal, threat to staff... and all critical care pts) @ -[No] Disposition Clinical Impression: Chest pain Disposition: HOME SELF-CARE Condition: Good Instructions (If sedation given, give patient instructions): Chest Pain (ED) Is patient prescribed a controlled substance at d/c from ED?: No Referrals: Emmanuel Lepe MD [Primary Care Provider] - 1-2 days Duy Jamil MD [STAFF PHYSICIAN] - 1-2 days
--- NOTE | 2022-09-14 16:12 | XR ---
EXAMINATION TYPE: XR chest 2V DATE OF EXAM: 09/14/2022 COMPARISON: 07/20/2020 HISTORY: 76-year-old female with chest pain TECHNIQUE: PA and lateral views FINDINGS: Heart normal size. Aorta and pulmonary vasculature within normal. Calcified granuloma periphery of th e right upper lobe. No consolidation or pleural effusion. IMPRESSION: No acute cardiopulmonary process.
[2022-09-14 20:11] VITALS: BP 143/72; PULSE 63
== END 2022-09-14 20:10 | disposition home or self-care (01) ==
LOC: EC 13:34
DX: R07.89 Other chest pain (principal); I10 Essential (primary) hypertension; M19.90 Unspecified osteoarthritis, unspecified site; F41.9 Anxiety disorder, unspecified; F32.A Depression, unspecified; Z87.891 Personal history of nicotine dependence; Z79.1 Long term (current) use of non-steroidal anti-inflammatories (NSAID); Z79.899 Other long term (current) drug therapy; Z88.1 Allergy status to other antibiotic agents; Z88.6 Allergy status to analgesic agent; Z91.018 Allergy to other foods; Z88.8 Allergy status to other drugs, medicaments and biological substances
CPT/HCPCS: 36415; 71046; 80053; 83735; 84484; 85025; 85610; 85730; 93005; 99285